=== PATIENT | female | born 1930 | race Asian ===

== ENCOUNTER → 2019-12-01 | Outpatient (CLI) | payer MEDICARE, OTHER ==
--- NOTE | 2019-12-01 17:05 | RADIOLOGY REPORT (SQ) ---
EXAM DESCRIPTION: PET CT SKULL/THIGH COMPLETED DATE/TIME: 12/01/2019 1:30 pm REASON FOR STUDY: LUNG NODULE (R91.1) R91.1 SOLITARY PULMONARY NODULE COMPARISON: No priors available for comparison. Report from prior CT chest RADIONUCLIDE AND DOSE: 11.49 mCi F18 FDG The route of agent administration: Intravenous FASTING BLOOD SUGAR: 106 mg/dl CONTRAST TYPE AND DOSE: No CT contrast given. TECHNIQUE: Blood glucose level was verified. Above dose of FDG was injected intravenously. 2-D seg mented attenuation correction images were obtained from the base of the skull to the midthighs. Nonc ontrast CT images were obtained for attenuation correction and fusion with emission images. CT image s were performed without oral or intravenous contrast and are not sensitive for parenchymal lesions. A series of overlapping emission PET images were obtained. Images reviewed and manipulated at [facility] work station by the radiologist. Images stored on PACS. LIMITATIONS: None. FINDINGS: HEAD AND NECK: No areas of abnormal metabolic activity in the soft tissues of the head and neck. CHEST: Previously described left upper lobe pulmonary nodule measuring 2.4 cm demonstrates avid FDG u ptake (max SUV 8.8). No other discrete areas of abnormal uptake within the thorax. ABDOMEN AND PELVIS: Background hepatic activity max SUV 2.9 no areas of pathologic uptake within the abdomen or pelvis. Expected physiologic activity within the gastrointestinal and genitourinary syste m. PROXIMAL LOWER EXTREMITIES: No areas of abnormal metabolic activity in the soft tissues of the lower extremities. BONES: No abnormal metabolic activity in the visualized skeleton. ADDITIONAL CT FINDINGS: Hypermetabolic left upper lobe pulmonary nodule as above. Severe centrilobul ar and panacinar emphysema. Basilar predominant fibrotic change with questionable honeycombing. Cor onary atherosclerosis. Normal heart size. Scattered hepatic granuloma. No evidence of acute intra- abdominal/pelvic process. Aortoiliac atherosclerosis. Scattered colonic diverticula. IMPRESSION: 1. Hypermetabolic left upper lobe pulmonary nodule measuring 2.4 cm (max SUV 8.8) most compatible with malignancy. 2. No additional discrete areas of abnormal FDG uptake to suggest metastatic disease. 3. Background severe emphysema and pulmonary fibrosis. TECHNICAL DOCUMENTATION: JOB ID: [id number]- All Rights Reserved Reading location - IP/workstation name: [email or web address]
== END ==
LOC: RAD 11:10
PROVIDERS: ATTEND Internal Medicine
DX: R91.1 Solitary pulmonary nodule (principal); J43.2 Centrilobular emphysema; I25.10 Atherosclerotic heart disease of native coronary artery without angina pectoris; J84.10 Pulmonary fibrosis, unspecified
CPT/HCPCS: 78815; A9552